=== PATIENT | female | born 1980 | race Caucasian/White ===

== ENCOUNTER 2017-02-26 19:45 | Emergency (ER) | payer OTHER ==
[2017-02-26 20:46] LABS: BILIRUBIN NEGATIVE (NEGATIVE); BLOOD 2+ Ery/uL (NEGATIVE); CLARITY CLOUDY (CLEAR); COLOR COLORLESS (YELLOW); GLUCOSE (U) NORMAL (NORMAL); KETONE (U) NEGATIVE (NEGATIVE); LEUKOCYTES 3+ Leu/uL (NEGATIVE); NITRITE NEGATIVE (NEGATIVE); PROTEIN NEGATIVE (NEGATIVE); SPECIFIC GRAVITY <=1.005 (1.001-1.030); UROBILINOGEN 0.2 mg/dL (0.2-1.0)
[2017-02-26 20:53] LABS: BACTERIA 2+; MUCOUS MODERATE
== END 2017-02-26 22:30 | disposition home or self-care (01) ==
LOC: FER 19:45
PROVIDERS: Emergency Medicine
DX: B37.41 Candidal cystitis and urethritis (principal); A59.09 Other urogenital trichomoniasis
CPT/HCPCS: 81001; 87070; 87210